=== PATIENT | female | born 1985 | race Two or more races ===

== ENCOUNTER 2024-12-04 14:56 | Emergency (ER) | payer MEDICAID, SELFPAY ==
[2024-12-04 15:36] VITALS: BP 149/95; PULSE 81; RESP 18; TEMP 37.1; O2SAT 97; BMI 35.6
--- NOTE | 2024-12-04 15:50 | XR_ITS ---
Examination: Lower chest 2 views TECHNIQUE: Upright PA lateral chest 2 views Date and time: December 04, 2024 1610 hours INDICATIONS: Chest pain and shortness of breath today. FINDINGS: Normal heart size. Lungs are clear. The osseous structures are intact IMPRESSION: No active disease
--- NOTE | 2024-12-04 15:51 | PD.EDRME ---
Rapid Medical Screening Exam RME Arrival date/time: 12/04/24 14:56 39-year-old female presents to the emergency department day for complaints of cough x 1 month Chief Complaint: Back Pain/Injury Vital signs: Vital Signs Temperature 98.8 F 12/04/24 15:36 Pulse Rate 81 12/04/24 15:36 Respiratory Rate 18 12/04/24 15:36 Blood Pressure 149/95 H 12/04/24 15:36 Pulse Oximetry (%) 97 12/04/24 15:36 Oxygen Delivery Method Room Air 12/04/24 15:36
[2024-12-04 16:12] LABS: Basophils # (Auto) 0.1 Thou/mm3 (0.0-0.2); Basophils % (Auto) 1 % (0-2.5); Eosinophils # (Auto) 0.2 Thou/mm3 (0.0-0.5); Eosinophils % (Auto) 2 % (0-10); Hematocrit 38.3 % (36.0-46.0); Hemoglobin 12.9 g/dL (12.0-16.0); Immature Granulocytes Auto 0.02 Thou/mm3 (0.00-0.00); Lymphocytes # (Auto) 2.3 Thou/mm3 (1.0-4.8); Lymphocytes % (Auto) 23 % (10-50); Mean Corpuscular HGB Conc 33.7 g/dl (31.0-37.0); Mean Corpuscular Hemoglobin 26.9 pg (25.0-35.0); Mean Corpuscular Volume 80 fL (80-100); Monocytes # (Auto) 0.5 Thou/mm3 (0.0-0.8); Monocytes % (Auto) 5 % (0-12); Neutrophils # (Auto) 7.1 Thou/mm3 (1.8-7.7); Neutrophils % (Auto) 69 % (37-80); Nucleated Red Blood Cell # 0.00 Thou/mm3 (0.00-0.00); Nucleated Red Blood Cell % 0 /100 WBC (0); Platelet Count 298 Thou/mm3 (140-440); RDW Standard Deviation 43.9 fL (36.4-46.3); Red Blood Count 4.80 Miln/mm3 (4.00-5.20); White Blood Count 10.2 Thou/mm3 (3.6-11.0)
--- NOTE | 2024-12-04 16:12 | XR_ITS ---
Examination: Ribs, right, with PA chest, 5 views Technique: Chest PA, RIBS AP, RPO, LPO, AP coned lower ribs 5 views Exam date and time: December 04, 2024 1619 hours INDICATIONS: Chest and right rib pain today Findings: Normal heart size. No pneumothorax or pulmonary contusion hemothorax or pneumonia. Mild osteopenia. No acute rib fractures IMPRESSION: No pneumothorax, pulmonary contusion or hemothorax. No acute rib fractures.
--- NOTE | 2024-12-04 16:19 | PD.EDADULT ---
ED General RME/HPI General Chief complaint: Back Pain/Injury Stated complaint: RIGHT RIB PAIN X 4 WKS; WORSE TODAY WITH COUGH Arrival date/time: 12/04/24 14:56 Limitations: no limitations RME / HPI RME / HPI narrative: 12/04/24 14:56 39-year-old female presents to the emergency department day for complaints of cough x [address] VASQUEZ MAIN ED EVALUATION: 39 year old female presents to the Emergency Department with complaint of right ribs' pain onset 4 weeks, worse today. Associated symptoms include a cough. No other symptoms reported at this time. Related Data Previous Rx's ?Medication ?Instructions ?Recorded cyclobenzaprine 5 mg tablet 5 mg PO BID PRN muscle spasm #20 07/10/20 tabs naproxen 500 mg tablet 500 mg PO BID PRN pain #30 tabs 07/10/20 Allergies Allergy/AdvReac Type Severity Reaction Status Date / Time No Known Allergies Allergy Verified 12/04/24 15:01 Review of Systems Review of Systems Systems Reviewed: All systems reviewed, normal except as documented Past Medical History Social History SMOKING STATUS: Never smoker SUBSTANCE USE: does not use ALCOHOL: Never ED Exam General Limitations: Present no limitations General appearance: Present alert and in distress Head Head exam: Present atraumatic, normocephalic and normal inspection Eye Eye exam: Present normal appearance, PERRL and EOMI ENT ENT exam: Present normal exam, normal oropharynx and mucous membranes moist Neck Neck exam: Present normal inspection, full ROM and trachea midline Chest Chest inspection: Present tenderness (posterior lateral right sided ribs' tenderness, 1+; no rib deformity, no costochondritis) Respiratory Respiratory exam: Present normal lung sounds bilaterally Cardiovascular Cardiovascular exam: Present regular rate, normal rhythm and normal heart sounds Abdominal Exam Abdominal exam: Present soft and normal bowel sounds Extremities Exam Extremities exam: Present normal inspection and full ROM Back Exam Back exam: Present normal inspection and full ROM Neurological Exam Neurological exam: Present alert, oriented X3 and CN II-XII intact Psychiatric Psychiatric exam: Present normal affect and normal mood Skin Skin exam: Present warm, dry, intact and normal color Course Quality Measures none Orders Category Date Time Status XR chest 2V Stat Exams 12/04/24 15:50 Taken XR ribs RT min 3V w CXR1V Stat Exams 12/04/24 16:12 Taken CBC Stat Lab 12/04/24 15:57 Completed Cocci Serology IgM with reflex to IgG [Cocci Serology, Lab 12/04/24 15:57 Stop Req Unk History] Stat Comprehensive Metabolic Panel Stat Lab 12/04/24 15:57 Completed HCG Qualitative,Urine Stat Lab 12/04/24 17:12 Completed Troponin I Stat Lab 12/04/24 15:57 Completed Ibuprofen Tab [Motrin Tab] Med 12/04/24 15:50 Discontinued 800 mg PO X1 ONE Vital Signs Vital signs: Vital Signs Temperature 98.8 F 12/04/24 15:36 Pulse Rate 81 12/04/24 15:36 Respiratory Rate 18 12/04/24 15:36 Blood Pressure 149/95 H 12/04/24 15:36 Pulse Oximetry (%) 97 12/04/24 15:36 Oxygen Delivery Method Room Air 12/04/24 15:36 Discharge Plan Plan Patient Disposition: HOME (Self Care) Patient condition on transfer: Stable Prescriptions/Referrals Prescriptions/Med Rec: No Action cyclobenzaprine 5 mg tablet 5 mg PO BID PRN (Reason: muscle spasm) Qty: 20 0RF naproxen 500 mg tablet 500 mg PO BID PRN (Reason: pain) Qty: 30 0RF Referrals: Rudy Duarte MD [Primary Care Provider] - In 1 week Problem List Clinical Impression: Rib pain on right side Impression comment: Right rib pain secondary to cough Patient/Caregiver Discharge Instructions Additional Instructions: Take Tylenol 500 mg 2 tabs every 6 hours PLUS Advil 200 mg gel 2 tablets as needed for pain. Take Robitussin for your cough. Please follow-up with your primary care physician within 2-3 days. Return to the Emergency Department as needed. Print Language: Stateless Stand Alone Forms: Nellie Award Info., Patient Portal Info Letter MDM Narrative [facility] hospital course: I, Diann Hagan, josue scribing for and in the presence of Dr. Vasquez. Patient has right rib pain secondary to cough. Rib x-ray does not show any displaced rib fracture. Will discharge. Discharge instructions: Take Tylenol 500 mg 2 tabs every 6 hours PLUS Advil 200 mg gel 2 tablets as needed for pain. Take Robitussin for your cough. Please follow-up with your primary care physician within 2-3 days. Return to the Emergency Department as needed. Clinical Information Provided by patient Medical Records Reviewed [facility] Meds/Rx Considered, not Ordered None Labs/Rad/Tests considered, not Ordered None Chronic Illness/Social Conditions which may negatively complicate care or outcome(s)-explain: None or not applicable EKG EKG not done Lab Interpretation Labs: see narrative above Imaging Imaging interpretation: see narrative above Medication Administration(s) Medication Administration History Discontinued Medications Ibuprofen (Ibuprofen Tab 400 Mg Tablet) 800 mg PO X1 ONE Stop: 12/04/24 15:51 Last Admin: 12/04/24 16:39 Dose: 800 mg Documented By: Diagnosis Differential diagnosis: rib contusion, rib fracture, rib pain Most likely dx, and/or detailed dx discussion: Right rib pain secondary to cough Dispositon Disposition: Discharge Home
[2024-12-04 16:29] LABS: Alanine Aminotransferase 50 U/L (10-49); Albumin, Serum 4.4 gm/dL (3.5-5.0); Albumin/Globulin Ratio 1.4 (1.2-2.2); Alkaline Phosphatase 93 U/L (46-116); Anion Gap 9 (7-16); Aspartate Amino Transferase 33 U/L (0-34); BUN/Creatinine Ratio 13 Ratio (12-20); Bilirubin,Total 0.3 mg/dL (0.3-1.2); Blood Urea Nitrogen 10 mg/dL (9-23); Calcium 9.2 mg/dL (8.3-10.6); Calcium (Corrected) 9.2 mg/dL (8.5-10.1); Carbon Dioxide 24.4 mMol/L (20.0-31.0); Chloride 107 mMol/L (98-107); Creatinine (Component) 0.8 mg/dL (0.6-1.3); Estimated Creatinine Clearance 106.2 mL/min (>60); Globulin 3.1 gm/dL (2.3-3.5); Glucose 121 mg/dL (74-106); Osmolality,Calculated 279 (275-295); Potassium 4.3 mMol/L (3.4-5.1); Sodium 140 mMol/L (136-145); Total Protein 7.5 gm/dL (5.7-8.2); Troponin I < 0.002 ng/mL (0.0-0.045); eGFR > 60 See Note
[2024-12-04] MEDS: IBUPROFEN TAB 400 MG TABLET 800 MG PO (16:39)
[2024-12-04 17:25] VITALS: BP 133/88; PULSE 85; RESP 18; TEMP 36.8; O2SAT 98
[2024-12-04 17:35] LABS: HCG Qualitative,Urine Negative
[2024-12-04 17:58] VITALS: BP 124/84; PULSE 78; RESP 17; TEMP 36.7; O2SAT 97
[2024-12-05 11:40] LABS: Cocci Serology, IgM Negative (Negative)
[2024-12-06 13:18] LABS: Cocci Serology, IgG Negative (Negative)
== END 2024-12-04 18:09 | disposition home or self-care (01) ==
PROVIDERS: Nurse Practitioner Primary Care; Emergency Provider Family Medicine; PCP Family Medicine
DX: R07.81 Pleurodynia (principal); R05.9 Cough, unspecified
CPT/HCPCS: 36415; 71046; 71101; 80053; 81025; 84484; 85025; 86331; 86635; 99283; A9270